=== PATIENT | female | born 1985 | race Two or more races ===

== ENCOUNTER → 2018-08-12 | Outpatient (CLI) | payer OTHER ==
--- NOTE | 2018-08-12 13:55 | RAD ---
Pelvic ultrasound History: Abnormal uterine bleeding. Delivered June 2018. Comparison: None. Technique: Transabdominal ultrasound was performed. Findings: The uterus measures 10.7 cm in length and is unremarkable. The endometrium measures 4 mm. There is no evidence of retained products of conception. Right ovary measures 3.0 x 3.4 x 1.8 cm and is unremarkable. The left ovary measures 2.5 x 1.3 x 2.1 cm and demonstrates small follicle. No adnexal masses are identified. No significant free fluid is identified within the pelvis. Both ovaries demonstrate normal vascular flow upon Doppler interrogation and are without evidence of torsion. Impression: 1. Unremarkable pelvic ultrasound. Electronically signed by: Bryce Quick MD (08/12/2018 1:52 PM) [place] [id number]
== END | disposition home or self-care (01) ==
LOC: US 12:46
PROVIDERS: ATTEND Advanced Practice Midwife
DX: O72.1 Other immediate postpartum hemorrhage (principal)
CPT/HCPCS: 76856